=== PATIENT | female | born 1995 ===

== ENCOUNTER 2018-04-02 22:10 | Emergency (ER) | payer BC ==
[2018-04-02 22:28] VITALS: BP 119/77
[2018-04-02 23:17] LABS: Hematocrit 38.5 % (30.3-42.9); Hemoglobin 12.6 gm/dl (10.1-14.3); Mean Corpuscular HGB Conc 33 % (30-34); Mean Corpuscular Hemoglobin 27 pg (28-32); Mean Corpuscular Volume 83 fl (79-97); Platelet Count 239 K/mm3 (140-440); Red Blood Count 4.62 M/mm3 (3.65-5.03); Red Cell Distribution Width 13.5 % (13.2-15.2)
[2018-04-02 23:33] LABS: BUN/Creatinine Ratio 20; Blood Urea Nitrogen 18 mg/dL (7-17); Calcium 9.4 mg/dL (8.4-10.2); Hemolysis Index 28
[2018-04-03 02:45] LABS: Bilirubin,Urine NEG (Negative); Blood,Urine SM (Negative); Color,Urine Yellow (Yellow); Mucus,Urine 3+ /HPF
--- NOTE | 2018-04-03 03:03 | Emergency Department Report ---
ED Female HPI - General Chief complaint: Vaginal Bleeding Stated complaint: VOMITING,VAGINAL BLEEDING Time Seen by Provider: 04/03/18 01:49 Source: patient Mode of arrival: Ambulatory Limitations: No Limitations - History of Present Illness Initial comments: 23-year-old -[place] female presents to the emergency room for having breakthrough bleeding periods. Patient woke up having light vaginal bleeding with dark brown in color. Patient had onset of nausea and vomiting at 8:00 tonight. Patient denies abdominal pelvic pain. Patient's weight because she hasn't been eating due to stress and lack of appetite. MD Complaint: vaginal bleeding -: days(s) (7) Severity scale (0 -10): 0 Improves with: menstrual period Are you Now?: No (abnormal) Last Menstrual Period: 03/26/18 EDC: 12/31/18 Associated Symptoms: vaginal bleeding, nausea/vomiting, headaches, loss of appetite - Related Data Sexually active: No (not at this time.) : 1 Para: 0 Previous Rx's Medication Instructions Recorded Last Taken Type Nitrofurantoin Monohyd/M-Cryst 100 mg PO BID 10 Days #20 capsule 04/03/18 Unknown Rx [Macrobid 100 mg Capsule] Allergies Allergy/AdvReac Type Severity Reaction Status Date / Time No Known Allergies Allergy Unverified 04/02/18 22:41 ED Review of Systems ROS: Stated complaint: VOMITING,VAGINAL BLEEDING Other details as noted in HPI Constitutional: denies: chills, fever Eyes: denies: eye pain, eye discharge, vision change ENT: denies: ear pain, throat pain Respiratory: denies: cough, shortness of breath, wheezing Cardiovascular: denies: chest pain, palpitations Endocrine: no symptoms reported Gastrointestinal: nausea, vomiting, other (decreased appetite) Genitourinary: other (vaginal bleeding after normal.). denies: urgency, dysuria , discharge Musculoskeletal: denies: back pain, joint swelling, arthralgia Skin: denies: rash, lesions Neurological: headache Psychiatric: depression Hematological/Lymphatic: denies: easy bleeding, easy bruising ED Past Medical Hx - Past Medical History Previous Medical History?: No - Surgical History Past Surgical History?: Yes Additional Surgical History: wisdom teeth - Social History Smoking Status: Never Smoker Substance Use Type: None - Medications Home Medications: Home Medications Medication Instructions Recorded Confirmed Last Taken Type Nitrofurantoin Monohyd/M-Cryst 100 mg PO BID 10 Days #20 capsule 04/03/18 Unknown Rx [Macrobid 100 mg Capsule] ED Physical Exam - General Limitations: No Limitations General appearance: alert, in no apparent distress - Head Head exam: Present: atraumatic, normocephalic - Neck Neck exam: Present: full ROM - Respiratory Respiratory exam: Present: normal lung sounds bilaterally. Absent: respiratory distress - Cardiovascular Cardiovascular Exam: Present: regular rate, normal rhythm. Absent: systolic murmur, diastolic murmur, rubs, gallop - GI/Abdominal GI/Abdominal exam: Present: soft, normal bowel sounds ED Course Vital Signs 04/02/18 04/02/18 22:21 22:30 Temperature 99.2 F 99.2 F Pulse Rate 102 H 100 H Respiratory 18 16 Rate Blood Pressure 119/77 119/77 O2 Sat by Pulse 98 96 Oximetry ED Medical Decision Making - Lab Data Result diagrams: 04/02/18 22:50 04/02/18 22:50 - Medical Decision Making Patient has been evaluated but this provider fast track. Urinalysis shows positive for urinary tract infection. Headache will give ibuprofen 600 mg now. Discussed with patient weighs of improving her stress such as exercising reading walking engage in Activities, spend time with friends and coworkers. Discussed the patient and her test is negative. Critical care attestation.: If time is entered above; I have spent that time in minutes in the direct care of this critically ill patient, excluding procedure time. ED Disposition Clinical Impression: Stress at home UTI (urinary tract infection) Qualifiers: Urinary tract infection type: acute cystitis Hematuria presence: with hematuria Qualified Code(s): N30.01 - Acute cystitis with hematuria Disposition: TO HOME OR SELFCARE Is pt being admited?: No Does the pt Need Aspirin: No Condition: Stable Instructions: Urinary Tract Infection in Women (ED), Stress (ED) Additional Instructions: Please take antibiotics as prescribed. You can take [id number] Tylenol or Motrin for pain of her head. If symptoms persist or gets worse please follow up with her primary care provider. Prescriptions: Nitrofurantoin Monohyd/M-Cryst [Macrobid 100 mg Capsule] 100 mg PO BID 10 Days # 20 capsule Referrals: PRIMARY CARE, [Primary Care Provider] - 3-5 Days PRECIOUS BELTRE MD [Staff Physician] - 3-5 Days [facility] [Provider Group] - 3-5 Days Forms: Work/School Release Form(ED)
[2018-04-03] MEDS ORDERED: MOTRIN PO ONE (03:07)
== END 2018-04-03 03:10 | disposition home or self-care (01) ==
LOC: ED 22:10
DX: N39.0 Urinary tract infection, site not specified (principal); F43.9 Reaction to severe stress, unspecified
CPT/HCPCS: 36415; 80048; 81001; 84703; 85027; 99283